=== PATIENT | male | born 1975 | race Caucasian/White ===

== ENCOUNTER 2023-01-28 18:51 | Emergency (ER) | payer OTHER ==
[~2023-01-28] VITALS: Ht 177.8 cm; Wt 111.3 kg
[2023-01-28] MEDS ORDERED: AMOX-117 PO (23:02)
[2023-01-28] MEDS ORDERED: CefTRIAXone 500MG IM Kit w/LIDOcaine IM ONE (23:05)
[2023-01-28 23:25] VITALS: BP 155/97
== END 2023-01-28 23:27 | disposition home or self-care (01) ==
LOC: ER 18:52
DX: J02.9 Acute pharyngitis, unspecified (principal); H92.02 Otalgia, left ear; R09.81 Nasal congestion; R13.10 Dysphagia, unspecified; R68.83 Chills (without fever); Z79.2 Long term (current) use of antibiotics
CPT/HCPCS: 96372; 99283; J0696